=== PATIENT | female | born 1980 | race Caucasian/White ===

== ENCOUNTER → 2019-10-17 12:26 | Outpatient (CLI) | payer OTHER, SELFPAY ==
--- NOTE | 2019-10-17 | DI.US.S_ITS ---
ULTRASOUND OF RIGHT BREAST: 10/17/2019 CLINICAL: Palpable right breast lump.x 2 Focal right breast pain. Comparison is made to exam dated: 10/17/2019 [facility]. Color flow and real-time ultrasound of the right breast were performed. Drake scale images of the real-time examination were reviewed. There is a 0.5 cm x 0.4 cm x 0.2 cm oval, swyng-dmax-mann mass in the right breast at 12 o'clock anterior depth 2 cm from the nipple. This oval mass is hypoechoic with apparent fatty hilum. This correlates as one of the palpated areas of clinical concern. Color flow imaging demonstrates that there is no vascularity present. No other abnormalities were identified in the right breast at the remaining areas of palpable concern as directed by the patient. IMPRESSION: PROBABLY BENIGN The 0.5 cm x 0.4 cm x 0.2 cm oval mass in the right breast most likely is a lymph node and is probably benign. A follow-up ultrasound in 6 months is recommended to demonstrate stability. There are no sonographic abnormalities seen in the right breast to correspond with the remaining areas of clinical concern, palpable abnormalities, and pain at 9, 10, 11, and 12 o'clock positions in the right breast breast. A follow-up right ultrasound in 6 months is recommended to demonstrate stability. This exam was interpreted at Station ID: [id number]. Electronically Signed By: Kavin Santos M.D. aty/:10/17/2019 15:29:54 letter sent: Followup Recommended Ultrasound BI-RADS: 3 Probably benign
--- NOTE | 2019-10-17 | DI.MG.S_ITS ---
BILATERAL DIGITAL DIAGNOSTIC MAMMOGRAM 3D/2D WITH AUGMENTATION: 10/17/2019 CLINICAL: Right breast lumps and pain. Baseline exam. No prior exams were available for comparison. The tissue of both breasts is heterogeneously dense. This may lower the sensitivity of mammography. There are benign appearing diffuse punctate round calcifications in both breasts. No significant masses, calcifications, or other findings are seen in either breast. Bilateral breast implants are intact. IMPRESSION: INCOMPLETE: NEEDS ADDITIONAL IMAGING EVALUATION There is no abnormality seen in the right breast to correspond with the area of clinical concern, palpable abnormality, and pain indicated by triangular marker in the anterior depth in the upper outer quadrant, however, ultrasound is recommended. There is no abnormality seen in the right breast to correspond with the area of clinical concern, palpable abnormality, and pain indicated by triangular marker in the posterior depth in the upper outer quadrant, however, ultrasound is recommended. The recommended breast ultrasound is scheduled to immediately follow this examination. This exam was interpreted at Station ID: [id number]. NOTE: For mammograms, a report in lay terms will be sent to the patient. Approximately 15% of breast malignancies will not be visualized mammographically. In the management of a palpable breast mass, a negative mammogram must not discourage biopsy of a clinically suspicious lesion. Electronically Signed By: Kavin Santos M.D. aty/:10/17/2019 13:58:13 ACR BI-RADS Category 0: Incomplete 3340F
== END ==
PROVIDERS: PCP Family Medicine; Referring Provider Family Medicine; Visit Provider Family Medicine
DX: R92.8 Other abnormal and inconclusive findings on diagnostic imaging of breast (principal); N63.11 Unspecified lump in the right breast, upper outer quadrant; N64.4 Mastodynia
CPT/HCPCS: 76642; 77066; G0279

== ENCOUNTER → 2022-04-18 14:04 | Outpatient (CLI) | payer OTHER, SELFPAY ==
--- NOTE | 2022-04-18 | DI.US.S_ITS ---
ULTRASOUND OF RIGHT BREAST: 04/18/2022 CLINICAL: Patient returns for a late 6 month follow up of the right breast. Comparison is made to exams dated: 04/18/2022 mammogram, 10/17/2019 ultrasound, and 10/17/2019 mammogram - [facility]. Color flow and real-time ultrasound of the right breast were performed. Drake scale images of the real-time examination were reviewed. IMPRESSION: NEGATIVE There is no sonographic evidence of malignancy. There is no mammographic abnormality seen in the right breast to correspond with the area of clinical concern and prior ultrasound finding at 12 o'clock 2cm from nipple which is consistent with normal fibroglandular tissue, however, clinical followup is recommended. Please see mammographic report for other findings. This exam was interpreted at Station ID: [id number]. Electronically Signed By: Juan Turner M.D. lc/:04/18/2022 15:39:21 Ultrasound BI-RADS: 1 Negative
--- NOTE | 2022-04-18 | DI.MG.S_ITS ---
BILATERAL DIGITAL DIAGNOSTIC MAMMOGRAM 3D/2D WITH AUGMENTATION: 04/18/2022 CLINICAL: Late Short term follow up of the right breast, due for bilateral imaging. Comparison is made to exams dated: 10/17/2019 mammogram and 10/17/2019 ultrasound - [facility]. The tissue of both breasts is heterogeneously dense. This may lower the sensitivity of mammography. There are new grouped calcifications in the right breast at 11 o'clock posterior depth, upper outer quadrant. No other significant masses, calcifications, or other findings are seen in either breast. IMPRESSION: INCOMPLETE: NEEDS ADDITIONAL IMAGING EVALUATION The new grouped calcifications in the upper outer quadrant in the right breast are indeterminate. Additional views with possible ultrasound are recommended. There is no abnormality seen in the right breast to correspond with the prior ultrasound finding at 12 o'clock from Oct 2019. Based on the Tyrer Cuzick model (a risk assessment model) the patient's lifetime risk is 12.1% and her 10 year risk is 2.1%. According to the ACR, ACS, and NCCN guidelines, an annual breast MRI exam along with mammogram is recommended if the patient's lifetime risk is 20% or greater. This exam was interpreted at Station ID: [id number]. NOTE: For mammograms, a report in lay terms will be sent to the patient. Approximately 15% of breast malignancies will not be visualized mammographically. In the management of a palpable breast mass, a negative mammogram must not discourage biopsy of a clinically suspicious lesion. Electronically Signed By: Juan Turner M.D. lc/:04/18/2022 15:46:40 letter sent: Followup Recommended ACR BI-RADS Category 0: Incomplete 3340F
== END ==
PROVIDERS: PCP Family Medicine; Referring Provider Family Medicine; Visit Provider Family Medicine
DX: R92.8 Other abnormal and inconclusive findings on diagnostic imaging of breast (principal); R92.1 Mammographic calcification found on diagnostic imaging of breast
CPT/HCPCS: 76642; 77066; G0279

== ENCOUNTER → 2022-06-21 14:49 | Outpatient (CLI) | payer OTHER, SELFPAY ==
--- NOTE | 2022-06-21 14:50 | DI.RAD.S_ITS ---
PROCEDURE: XR KNEE LT 3V INDICATIONS: Left knee pain - patella injury TECHNIQUE: 3 views of the knee were acquired. COMPARISON: [facility], CR, XR KNEE 4+ VIEWS RIGHT, 10/11/2020, 16:40. [facility], CR, KNEE 3V RIGHT, 10/19/2015, 10:12. FINDINGS: Bones: No fractures or dislocations. No suspicious bony lesions. Soft tissues: No joint effusion. No suspicious soft tissue calcifications. IMPRESSION: Normal plain films. If it would be helpful for clinical management decision making, please consider a dedicated, scheduled knee MRI for further evaluation (assuming that there is no contraindication). Dictated by: Manish Israel M.D. on 06/21/2022 at 15:05 Approved by: Manish Israel M.D. on 06/21/2022 at 15:05
== END ==
PROVIDERS: PCP Family Medicine; Referring Provider Registered Nurse; Visit Provider Registered Nurse
DX: M25.562 Pain in left knee (principal)
CPT/HCPCS: 73562

== ENCOUNTER → 2022-07-01 11:59 | Outpatient (CLI) | payer OTHER, SELFPAY ==
--- NOTE | 2022-07-01 | DI.MG.S_ITS ---
UNILATERAL RIGHT DIGITAL DIAGNOSTIC MAMMOGRAM 3D/2D WITH AUGMENTATION: 07/01/2022 CLINICAL: Additional evaluation requested from prior study. Comparison is made to exams dated: 04/18/2022 ultrasound, 04/18/2022 mammogram, 10/17/2019 ultrasound, and 10/17/2019 mammogram - [facility]. The right breast is heterogeneously dense, which may obscure small masses (category c / 51-75% glandular tissue). There is an amorphous calcification in the right axillary tail. This is seen in additional views. On true lateral views, layering is seen. No other significant masses or calcifications are seen in the breast. IMPRESSION: BENIGN The amorphous calcification likely represents fibrocystic change and is benign. Layering is seen on true lateral views, confirming milk of calcium. There is no mammographic evidence of malignancy. Return to annual mammogram screening schedule is recommended. Based on the Tyrer Cuzick model (a risk assessment model) the patient's lifetime risk is 12.1% and her 10 year risk is 2.1%. According to the ACR, ACS, and NCCN guidelines, an annual breast MRI exam along with mammogram is recommended if the patient's lifetime risk is 20% or greater. This exam was interpreted at Station ID: [id number]. NOTE: For mammograms, a report in lay terms will be sent to the patient. Approximately 15% of breast malignancies will not be visualized mammographically. In the management of a palpable breast mass, a negative mammogram must not discourage biopsy of a clinically suspicious lesion. Electronically Signed By: Juan Turner M.D. lc/:07/01/2022 13:03:17 letter sent: Normal Exam ACR BI-RADS Category 2: Benign Finding(s) 3342F
== END ==
PROVIDERS: PCP Family Medicine; Referring Provider Family Medicine; Visit Provider Family Medicine
DX: R92.8 Other abnormal and inconclusive findings on diagnostic imaging of breast (principal); R92.1 Mammographic calcification found on diagnostic imaging of breast
CPT/HCPCS: 77065; G0279

== ENCOUNTER → 2023-10-16 14:45 | Outpatient (CLI) | payer OTHER, SELFPAY ==
--- NOTE | 2023-10-16 14:47 | DI.MG.S_ITS ---
BILATERAL DIGITAL SCREENING MAMMOGRAM 3D/2D WITH CAD WITH AUGMENTATION: 10/16/2023 CLINICAL: Routine screening. Comparison is made to exams dated: 07/01/2022 mammogram, 04/18/2022 mammogram, and 10/17/2019 mammogram - . Both breasts are heterogeneously dense, which may obscure small masses (category c / 51-75% glandular tissue). Current study was also evaluated with a Computer Aided Detection (CAD) system. Bilateral breast implants are present. No significant masses, calcifications, or other findings are seen in either breast. There has been no significant interval change. IMPRESSION: BENIGN There is no mammographic evidence of malignancy. A 1 year screening mammogram is recommended. Based on the Tyrer Cuzick model (a risk assessment model) the patient's lifetime risk is 12.1% and her 10 year risk is 2.2%. According to the ACR, ACS, and NCCN guidelines, an annual breast MRI exam along with mammogram is recommended if the patient's lifetime risk is 20% or greater. This exam was interpreted at Station ID: [id number]. NOTE: For mammograms, a report in lay terms will be sent to the patient. Approximately 15% of breast malignancies will not be visualized mammographically. In the management of a palpable breast mass, a negative mammogram must not discourage biopsy of a clinically suspicious lesion. Electronically Signed By: Juan lopes/ellen:10/16/2023 15:34:33 letter sent: Normal Exam ACR BI-RADS Category 2: Benign Finding(s) 3342F
== END ==
PROVIDERS: PCP Family Medicine; Referring Provider Family Medicine; Visit Provider Family Medicine
DX: Z12.31 Encounter for screening mammogram for malignant neoplasm of breast (principal); R92.333 Mammographic heterogeneous density, bilateral breasts
CPT/HCPCS: 77063; 77067

== ENCOUNTER → 2024-03-16 08:16 | Outpatient (CLI) | payer OTHER, SELFPAY ==
[2024-03-16 10:01] LABS: Alanine Aminotransferase 20 IU/L (<35); Albumin 4.3 g/dL (3.5-5.0); Albumin Globulin Ratio 1.7 (1.0-2.8); Alkaline Phosphatase 66 U/L (38-126); Aspartate Aminotransferase 25 IU/L (14-36); BUN Creatinine Ratio 13.8 (6-22); Bilirubin Total 0.5 mg/dL (0.2-1.3); Blood Urea Nitrogen 12 mg/dL (7-17); C-Reactive Protein Quant < 0.5 mg/dL (<1.0); Calcium 8.9 mg/dL (8.4-10.2); Carbon Dioxide 26 mmol/L (22-32); Chloride 106 mmol/L (98-107); Cholesterol 164 mg/dL (140-199); Estimated Glomerular Filt Rate > 60 mL/min (>60); Globulin 2.6 g/dL (1.7-4.1); Glucose 87 mg/dL (70-100); HDL Cholesterol 46 mg/dL (40-60); HEMOLYSIS < 15 (0-50); LDL Cholesterol Calculated 99 mg/dL (<100); Potassium 4.1 mmol/L (3.4-5.1); Sodium 140 mmol/L (137-145); Total Protein 6.9 g/dL (6.3-8.2); Triglycerides 93 mg/dL (35-150)
[2024-03-16 10:10] LABS: Erythrocyte Sedimentation Rate 1 MM/HR (0-20)
== END ==
PROVIDERS: PCP Family Medicine; Referring Provider Family Medicine; Visit Provider Family Medicine
DX: E78.5 Hyperlipidemia, unspecified (principal); M06.9 Rheumatoid arthritis, unspecified
CPT/HCPCS: 36415; 80053; 80061; 85651; 86140

== ENCOUNTER → 2024-04-02 11:27 | Outpatient (CLI) | payer OTHER, SELFPAY ==
[2024-04-02 13:40] LABS: Influenza A - CEPHEID Flu A NEGATIVE (NEGATIVE); Influenza B - CEPHEID Flu B NEGATIVE (NEGATIVE); Respiratory Syncytial Virus Negative (Negative)
[2024-04-02 13:41] LABS: COVID-19 CEPHEID 4-PLEX PCR Negative (Negative)
== END ==
PROVIDERS: PCP Family Medicine; Referring Provider Physician Assistant Surgical; Visit Provider Physician Assistant Surgical
DX: R05.9 Cough, unspecified (principal)
CPT/HCPCS: 0241U

== ENCOUNTER → 2024-04-02 11:36 | Outpatient (CLI) | payer OTHER, SELFPAY ==
--- NOTE | 2024-04-02 11:38 | DI.RAD.S_ITS ---
PROCEDURE: XR CHEST 2V INDICATIONS: Cough, SOB TECHNIQUE: 2 views of the chest were acquired. COMPARISON: None. FINDINGS: Surgical changes and devices: None. Lungs and pleura: Lungs are clear. No pleural effusions or pneumothorax. Mediastinum: Mediastinal contours are normal. Heart size is normal. Bones and chest wall: No suspicious bony abnormalities. Soft tissues appear unremarkable. IMPRESSION: No acute cardiopulmonary abnormality is seen. Approved by: Soham Cole M.D. on 04/02/2024 at 11:29
== END ==
PROVIDERS: PCP Family Medicine; Referring Provider Physician Assistant Surgical; Visit Provider Physician Assistant Surgical
DX: R06.02 Shortness of breath (principal); R05.9 Cough, unspecified
CPT/HCPCS: 0241U; 71046

== ENCOUNTER 2024-11-22 11:41 | Emergency (ER) | payer OTHER, SELFPAY ==
[2024-11-22 11:43] VITALS: BP 122/70; PULSE 89; RESP 13; TEMP 36.8; O2SAT 96; BMI 29.2
[2024-11-22] MEDS: TET,DIPH,PERTUSS(ACELL),VAC/PF 0.5 ML SYRINGE IM (12:16)
--- NOTE | 2024-11-22 12:35 | DI.RAD.S_ITS ---
PROCEDURE: XR HAND RT MIN 3V INDICATIONS: cat bite TECHNIQUE: 3 views of the hand(s) acquired. COMPARISON: None. FINDINGS: Bones: No fractures or dislocations. Carpal bones are normally aligned. No suspicious bony lesions. Soft tissues: No suspicious soft tissue calcifications. No radiopaque foreign bodies. IMPRESSION: No acute right hand fracture or dislocation. No radiopaque foreign bodies. Dictated by: Darrell Kamara M.D. on 11/22/2024 at 13:21 Approved by: Darrell Kamara M.D. on 11/22/2024 at 13:23
--- NOTE | 2024-11-22 12:36 | DI.RAD.S_ITS ---
PROCEDURE: XR FOREARM RT 2V INDICATIONS: cat bite TECHNIQUE: 2 views of the forearm were acquired. COMPARISON: None. FINDINGS: Bones: No fractures or dislocations. No suspicious bony lesions. Soft tissues: No suspicious soft tissue calcifications or masses. IMPRESSION: No acute forearm fracture or dislocation. No radiopaque foreign bodies. Dictated by: Darrell Kamara M.D. on 11/22/2024 at 13:16 Approved by: Darrell Kamara M.D. on 11/22/2024 at 13:21
[2024-11-22 14:01] VITALS: BP 121/57; PULSE 72; RESP 18; O2SAT 99
--- NOTE | 2024-11-22 14:39 | ED.ANIMALBIT ---
HPI - Animal Bite <Scott Hightower PA-C - Last Filed: 11/22/24 14:44> General Chief Complaint: Animal Bite Stated Complaint: animal bite Time Seen by Provider: 11/22/24 11:49 Source: patient Mode of arrival: Ambulatory History of Present Illness HPI narrative: 44-year-old female presents to the ED status post some cat bite sustained just prior to arrival. Patient has a 1 point 5-year-old kitten who she was trying to coax into a cage to take to the vet. The cat bit her in the process. Patient has some bites to the the right forearm and right hand. Patient is able to move all extremities. No numbness, tingling, weakness. Patient's tetanus status is unknown. Related Data Previous Rx's Medication Instructions Recorded albuterol sulfate 90 mcg/actuation 2 puff inhalation Q6H PRN 03/29/21 aerosol inhaler shortness of breath or wheezing #6.7 grams benzonatate 200 mg capsule 200 mg PO BID PRN cough #30 caps 04/02/24 amoxicillin 875 mg-potassium 1 tab PO BID #14 tabs 04/07/24 clavulanate 125 mg tablet codeine 10 mg-guaifenesin 100 mg/5 10 ml PO Q4-6H PRN cough #120 mL 04/07/24 mL oral liquid hydroxyzine HCl 25 mg tablet 25 mg PO 3XD PRN for anxiety #30 04/22/24 tabs fluoxetine 10 mg capsule 10 mg PO DAILY #30 caps 09/19/24 fluoxetine 20 mg capsule 20 mg PO DAILY #30 caps 11/21/24 amoxicillin 875 mg-potassium 1 tab PO Q12H 7 days #14 tabs 11/22/24 clavulanate 125 mg tablet doxycycline hyclate 100 mg capsule 100 mg PO BID 7 days #14 caps 11/22/24 Allergies Allergy/AdvReac Type Severity Reaction Status Date / Time Sulfa (Sulfonamide Allergy Severe TONGUE/MOUTH Verified 11/22/24 11:49 Antibiotics) SWELLING Penicillins [PENICILLINS] AdvReac Mild ITCHY FACE Verified 11/22/24 11:49 Review of Systems <Scott Hightower PA-C - Last Filed: 11/22/24 14:44> Constitutional Constitutional: Denies chills, Denies fatigue, Denies fever(s), Denies frequent falls, Denies lethargy and Denies weakness Eyes Eyes: Denies change in vision, Denies eye discharge, Denies irritation and Denies loss of vision ENT Ears, Nose, Mouth, and Throat: Denies change in voice, Denies dizziness, Denies neck pain, Denies sore throat and Denies throat swelling Cardiovascular Cardiovascular: Denies chest pain, Denies irregular heart rhythm, Denies lightheadedness, Denies palpitations, Denies dyspnea, Denies dyspnea on exertion and Denies orthopnea Respiratory Respiratory: Denies cough, Denies dyspnea, Denies dyspnea on exertion and Denies wheezing Gastrointestinal Gastrointestinal: Denies abdominal pain, Denies change in bowel habits, Denies diarrhea, Denies nausea and Denies vomiting Musculoskeletal Musculoskeletal: Denies neck pain and Denies numbness Integumentary/Breasts Skin/Breast: Denies pruritus, Denies erythema, Denies rash and Reports wounds Comments: Cat bites to the right hand and forearm Neurologic Neurologic: Denies behavioral changes, Denies confusion, Denies dizziness, Denies frequent falls, Denies loss of vision, Denies numbness and Denies weakness Psychiatric Psychiatric: Denies anxiety, Denies behavioral changes, Denies confusion, Denies depression, Denies homicidal ideation and Denies suicidal ideation Endocrine Endocrine: Denies fatigue, Denies flushing and Denies palpitations Hematologic/Lymphatic Hematologic/Lymphatic: Denies easy bruising Allergic/Immunologic Allergic/Immunologic: Denies urticaria, Denies throat swelling and Denies wheezing Patient History <Scott Hightower PA-C - Last Filed: 11/22/24 14:44> Medical History (Updated 11/22/24 @ 13:44 by Scott Hightower PA-C) Anxiety Rheumatoid arthritis Surgical History (Updated 04/04/24 @ 16:45 by Fallon Núñez DO) History of unilateral salpingectomy History of breast augmentation Status post dilation and curettage Status post appendectomy History of third molar tooth extraction Social History Smoking Status: Never smoker Smoking Status: Never smoker Exam <Scott Hightower PA-C - Last Filed: 11/22/24 14:44> Narrative Exam Narrative: Const General:?cooperative, healthy appearing and comfortable [facility] Head:?normal to inspection Ears:?hearing grossly normal bilaterally Nose:?external nose normal Face and sinus:?normal facial exam and sinuses nontender Mouth:?oral mucosae normal Throat:?posterior oropharynx normal Eyes General:?appearance normal, both eyes and all related structures Neck Neck:?normal visual inspection and no lymphadenopathy noted Resp Effort & Inspection:?normal respiratory effort Auscultation:?clear to auscultation bilaterally Cardio Rate:?regular rate Rhythm:?regular rhythm Integumentary There are multiple puncture wounds consistent with cat bites to the right forearm and hand. Not actively bleeding. Patient is able to move all joints. Patient is neurovascularly intact. Neuro General:?patient alert, patient awake and patient oriented x3 Initial Vital Signs Initial Vital Signs: Vital Signs Temperature 98.2 F 11/22/24 11:43 Pulse Rate 89 11/22/24 11:43 Respiratory Rate 13 11/22/24 11:43 Blood Pressure 122/70 11/22/24 11:43 Pulse Oximetry 96 11/22/24 11:43 Oxygen Delivery Method Room Air 11/22/24 11:43 <Flynn Raymond MD - Last Filed: 11/23/24 07:49> Initial Vital Signs Initial Vital Signs: Vital Signs Temperature 98.2 F 11/22/24 11:43 Pulse Rate 89 11/22/24 11:43 Respiratory Rate 13 11/22/24 11:43 Blood Pressure 122/70 11/22/24 11:43 Pulse Oximetry 96 11/22/24 11:43 Oxygen Delivery Method Room Air 11/22/24 11:43 Course <Scott Hightower PA-C - Last Filed: 11/22/24 14:44> Orders Ordered: Discontinued Medications Diphtheria/Tetanus/Acell Pertussis (Tet,Diph,Pertuss(Acell),Vac/Pf 0.5 Ml Syringe) 0.5 ml IM .ONCE ONE Stop: 11/22/24 11:50 Last Admin: 11/22/24 12:16 Dose: 0.5 ml Documented By: RACHEL Vital Signs Vital signs: Vital Signs - 8 hr 11/22/24 11:43 11/22/24 14:01 Temperature 98.2 F Pulse Rate 89 72 Respiratory Rate 13 18 Blood Pressure 122/70 121/57 L Pulse Oximetry 96 99 Oxygen Delivery Method Room Air Room Air <Flynn Raymond MD - Last Filed: 11/23/24 07:49> Orders Ordered: Discontinued Medications Diphtheria/Tetanus/Acell Pertussis (Tet,Diph,Pertuss(Acell),Vac/Pf 0.5 Ml Syringe) 0.5 ml IM .ONCE ONE Stop: 11/22/24 11:50 Last Admin: 11/22/24 12:16 Dose: 0.5 ml Documented By: RACHEL Vital Signs Vital signs: Vital Signs - 8 hr 11/22/24 11:43 11/22/24 14:01 Temperature 98.2 F Pulse Rate 89 72 Respiratory Rate 13 18 Blood Pressure 122/70 121/57 L Pulse Oximetry 96 99 Oxygen Delivery Method Room Air Room Air MDM - Animal Bite <Scott Hightower PA-C - Last Filed: 11/22/24 14:44> MDM Narrative Medical decision making narrative: 44-year-old female presents to the ED status post some cat bite sustained just prior to arrival. X-rays were obtained. No foreign bodies or fracture/dislocation. The wounds were soaked and washed out. Tetanus was updated. Patient prescribed antibiotics. Recommend patient continue to monitor wounds for signs of infection. Patient agrees to return to the ED if she notes any signs of infection. ED return precautions discussed with patient. Patient verbalized understanding. Medical records reviewed: Yes Discharge Plan Departure Patient Disposition: Home Clinical Impression: Cat bite Qualifiers: Encounter type: initial encounter Qualified Code(s): W55.01XA - Bitten by cat, initial encounter Instructions: DI for Cat Bite Activity Restrictions/Additional Instructions: You were evaluated in the ED today for a cat bite. The x-rays were normal. Given that cat bites are extremely susceptible to infection, you are being prescribed antibiotics. Please take those as prescribed. Please continue to monitor your wounds for signs of infection including worsening redness, swelling, pain, discharge, warmth. Return to the ED if you note any signs of infection. Prescriptions: New doxycycline hyclate 100 mg capsule 100 mg PO BID 7 Days Qty: 14 0RF amoxicillin-pot clavulanate 875-125 mg tablet 1 tab PO Q12H 7 Days Qty: 14 0RF No Action albuterol sulfate 90 mcg/actuation HFA aerosol inhaler 2 puff inhalation Q6H PRN (Reason: shortness of breath or wheezing) Qty: 6.7 1RF benzonatate 200 mg capsule 200 mg PO BID PRN (Reason: cough) Qty: 30 0RF codeine-guaifenesin 10-100 mg/5 mL liquid 10 ml PO Q4-6H PRN (Reason: cough) Qty: 120 0RF amoxicillin-pot clavulanate 875-125 mg tablet 1 tab PO BID Qty: 14 0RF hydroxyzine HCl 25 mg tablet 25 mg PO 3XD PRN (Reason: for anxiety) Qty: 30 1RF fluoxetine 10 mg capsule 10 mg PO DAILY Qty: 30 1RF fluoxetine 20 mg capsule 20 mg PO DAILY Qty: 30 3RF Rx Instructions: Take with 10mg for 30mg total Referrals: Suzie Mccabe MD [Primary Care Provider] - Stand Alone Forms: Patient Portal/API/Survey ED Sign-out <Flynn Raymond MD - Last Filed: 11/23/24 07:49> Cosign ED Attending Cosignature Attestation: I was immediately available in the department for consultation. ?This documentation has been reviewed and I agree with assessment and plan. Supervised by Flynn Raymond MD
== END 2024-11-22 14:02 | disposition home or self-care (01) ==
PROVIDERS: Emergency Provider Student in an Organized Health Care Education/Training Program; PCP Family Medicine
DX: S61.451A Open bite of right hand, initial encounter (principal); S51.851A Open bite of right forearm, initial encounter; W55.01XA Bitten by cat, initial encounter; Z23 Encounter for immunization
CPT/HCPCS: 73090; 73130; 90471; 99283; 90715

== ENCOUNTER → 2025-07-08 14:51 | Outpatient (CLI) | payer OTHER, SELFPAY ==
[2025-07-08 16:05] LABS: Influenza A - CEPHEID Flu A NEGATIVE (NEGATIVE); Influenza B - CEPHEID Flu B NEGATIVE (NEGATIVE)
[2025-07-08 16:22] LABS: COVID-19 CEPHEID 4-PLEX PCR Negative (Negative)
== END ==
PROVIDERS: PCP Family Medicine; Visit Provider Nurse Practitioner Family
DX: R07.0 Pain in throat (principal)
CPT/HCPCS: 87070; 87637